=== PATIENT | male | born 1945 | race Caucasian/White ===

== ENCOUNTER 2021-06-22 13:11 | Observation (INO) | payer MEDICARE ==
[2021-06-22] MEDS ORDERED: Acetaminophen 325 MG TAB PO PRN (14:47)
[2021-06-22] MEDS ORDERED: Ondansetron PF 4 MG/2 ML Vial IVP PRN (14:47)
[2021-06-22] MEDS ORDERED: Enoxaparin Sodium 40 MG/0.4 ML SYRINGE SC SCH (15:15)
[2021-06-22 15:25] VITALS: BMI 26.2
[2021-06-22] MEDS ORDERED: Potassium Bicarbonate/Cit Ac 25 MEQ TAB PO SCH (15:30)
[2021-06-22 16:04] LABS: #Monocytes 0.4 10x3/uL (0.0-1.1); #Neutrophils 5.4 10x3/uL (1.5-8.4); %Basophils 0.3 % (0.0-2.0); %Eosinophils 0.3 % (0.0-6.0); %Lymphocytes 10.9 % (18.0-47.0); %Monocytes 5.8 % (0.0-10.0); %Neutrophils 82.2 % (40.0-75.0); Hemoglobin 12.3 g/dL (13.5-17.5); Mean Corpuscular HGB CONC 33.6 g/dL (32.0-36.0); Mean Corpuscular Hemoglobin 31.2 pg (27.0-33.0); Mean Corpuscular Volume 92.9 fl (81.2-95.1); Mean Platelet Volume 9.8 fl (7.4-10.4); Platelet Count 212 10x3/uL (150-450); RBC Distribution Width 12.7 % (11.5-14.5); Red Blood Cell (RBC) Count 3.94 10x6/uL (4.32-5.72); White Blood Cell (WBC) Count 6.6 10x3/uL (3.5-10.5)
[2021-06-22 16:16] LABS: ALT (SGPT) 14 U/L (8-55); AST (SGOT) 19 U/L (5-34); Alkaline Phosphatase 65 U/L (40-110); Anion Gap 15 mmol/L (10-20); BUN (Urea Nitrogen) 13 mg/dL (8.4-25.7); Bilirubin, Total 0.5 mg/dL (0.2-1.2); Calc. Creatinine Clearance 81 mL/min (70-130); Calcium 8.8 mg/dL (7.8-10.44); Carbon Dioxide 20 mmol/L (23-31); Chloride 105 mmol/L (98-107); Globulin 2.4 g/dL (2.4-3.5); Glucose 105 mg/dL (83-110); Protein, Total 6.4 g/dL (5.8-8.1); Sodium 136 mmol/L (136-145)
[2021-06-22 16:22] LABS: Troponin I Less than 0.010 ng/mL (< 0.028)
[2021-06-22] MEDS ORDERED: Apixaban 5 MG TAB PO SCH (17:00)
[2021-06-22] MEDS: Dronedarone HCl 400 MG TAB PO SCH (17:07)
[2021-06-22 18:36] LABS: SARS-CoV-2 NAA Rapid Test Not Detected (NotDetected)
[2021-06-22 19:04] LABS: Bilirubin Neg (Negative); Blood, Urine Negative (Negative); Clarity Clear (Clear); Glucose, Urine (Dipstick) Normal (Negative); Ketone, Urine 5 mg/dL (Negative); Leukocyte Negative (Negative); Nitrite Negative (Negative); Protein, Urine (Dipstick) Negative (Neg-Trace); Urobilinogen Normal mg/dL (Less than 2)
[2021-06-22 19:18] LABS: Bacteria/HPF None Seen HPF (None Seen); RBC/HPF None Seen HPF (0-3); Squamous Epithelial None Seen HPF (0-3); WBC/HPF 0-3 HPF (0-3)
[2021-06-22] MEDS: Metoprolol Tartrate 25 MG TAB PO SCH (20:56)
[2021-06-22] MEDS: Famotidine 20 MG TAB PO SCH (20:56)
[2021-06-22] MEDS: Meclizine HCl 25 MG TAB PO SCH (21:22)
[2021-06-22 21:45] LABS: Troponin I Less than 0.010 ng/mL (< 0.028)
[2021-06-23 05:05] LABS: #Eosinphils 0.1 10x3/uL (0.0-0.5); #Monocytes 0.5 10x3/uL (0.0-1.1); %Basophils 0.5 % (0.0-2.0); %Lymphocytes 25.5 % (18.0-47.0); %Monocytes 8.5 % (0.0-10.0); %Neutrophils 63.2 % (40.0-75.0); Hemoglobin 11.1 g/dL (13.5-17.5); Mean Corpuscular HGB CONC 34.7 g/dL (32.0-36.0); Mean Corpuscular Hemoglobin 31.6 pg (27.0-33.0); Mean Corpuscular Volume 91.2 fl (81.2-95.1); Mean Platelet Volume 9.2 fl (7.4-10.4); Platelet Count 189 10x3/uL (150-450); RBC Distribution Width 13.3 % (11.5-14.5); Red Blood Cell (RBC) Count 3.51 10x6/uL (4.32-5.72); White Blood Cell (WBC) Count 6.4 10x3/uL (3.5-10.5)
[2021-06-23 05:20] LABS: Anion Gap 13 mmol/L (10-20); BUN (Urea Nitrogen) 15 mg/dL (8.4-25.7); Calc. Creatinine Clearance 62 mL/min (70-130); Calcium 8.6 mg/dL (7.8-10.44); Carbon Dioxide 24 mmol/L (23-31); Chloride 105 mmol/L (98-107); Glucose 98 mg/dL (83-110); Potassium 4.1 mmol/L (3.5-5.1); Sodium 138 mmol/L (136-145)
[2021-06-23] MEDS: Meclizine HCl 25 MG TAB PO SCH (06:52)
[2021-06-23] MEDS ORDERED: Enoxaparin Sodium 40 MG/0.4 ML SYRINGE SC SCH (09:00)
[2021-06-23] MEDS ORDERED: Apixaban 5 MG TAB PO SCH (09:00)
[2021-06-23] MEDS ORDERED: Aspirin 81 mg Enteric Coated Tablet PO SCH (09:00)
[2021-06-23] MEDS: Metoprolol Tartrate 25 MG TAB PO SCH (09:28)
[2021-06-23] MEDS: Famotidine 20 MG TAB PO SCH (09:28)
[2021-06-23] MEDS: Dronedarone HCl 400 MG TAB PO SCH (09:28)
[2021-06-23 12:24] VITALS: BP 136/65; TEMP 98.9
== END 2021-06-23 13:05 | disposition home health service (06) ==
LOC: CSHTELE 13:11
PROVIDERS: ADMIT Family Medicine; ATTEND Family Medicine
DX: I48.91 Unspecified atrial fibrillation (principal); E87.6 Hypokalemia; E78.5 Hyperlipidemia, unspecified; K21.9 Gastro-esophageal reflux disease without esophagitis; Z79.899 Other long term (current) drug therapy; Z20.822 Contact with and (suspected) exposure to COVID-19
CPT/HCPCS: 70450; 80048; 81001; 84484; 85025; 93005 ×2; 93306; 96374; G0378 ×2; U0002; 36415; 84443; 93010; J2405

== ENCOUNTER 2024-03-28 07:27 | Emergency (ER) | payer MEDICARE ==
[2024-03-28] MEDS ORDERED: Acetaminophen 325 MG TAB ONE (07:47)
[2024-03-28] MEDS ORDERED: Lidocaine 4% Patch ONE (07:47)
== END 2024-03-28 08:33 | disposition home or self-care (01) ==
LOC: CSHERS 07:27
DX: M25.561 Pain in right knee (principal)
CPT/HCPCS: 99283